=== PATIENT | female | born 1990 | race Caucasian/White ===

== ENCOUNTER 2018-05-16 07:17 | Emergency (ER) | payer SELFPAY ==
[2018-05-16] MEDS: LORAZEPAM 1 MG TAB PO (07:32)
== END 2018-05-16 08:27 | disposition home or self-care (01) ==
LOC: E/R 07:17
DX: R25.2 Cramp and spasm (principal); R40.2252 Coma scale, best verbal response, oriented, at arrival to emergency department; R40.2362 Coma scale, best motor response, obeys commands, at arrival to emergency department; R40.2142 Coma scale, eyes open, spontaneous, at arrival to emergency department
CPT/HCPCS: 82962; 93005; 99283-25